=== PATIENT | female | born 1945 | race Caucasian/White ===

== ENCOUNTER 2023-03-26 14:14 | Emergency (ER) | payer MEDICARE ==
[~2023-03-26] VITALS: Ht 167.6 cm; Wt 54.4 kg
[2023-03-26 14:19] VITALS: BP 130/68; TEMP 98.2
[2023-03-26] MEDS ORDERED: LEVO750T46 PO (15:15)
[2023-03-26] MEDS ORDERED: TDAP [DIPH/PERTUSSIS/TET] 0.5 ML VIAL IM ONE ×2 (15:25→15:30)
--- NOTE | 2023-03-26 15:42 | NUR ---
Patient discharged to home in stable condition. Written and verbal after care instructions given. Patient verbalizes understanding of instruction.
[2023-03-26 15:43] VITALS: O2SAT 98
== END 2023-03-26 15:43 | disposition home or self-care (01) ==
LOC: ER 14:20
DX: S91.331A Puncture wound without foreign body, right foot, initial encounter (principal); W45.0XXA Nail entering through skin, initial encounter; Y93.89 Activity, other specified; Y92.89 Other specified places as the place of occurrence of the external cause; Y99.8 Other external cause status
CPT/HCPCS: 90715

== ENCOUNTER 2024-08-07 22:32 | Inpatient (IN) | payer MEDICARE, OTHER ==
[~2024-08-07] VITALS: Ht 167.6 cm; Wt 57.2 kg
[~2024-08-07 22:32] MED LIST: LEVO750T46 PO
[2024-08-08] MEDS ORDERED: ONDANSETRON HCL/PF 4 MG/2 ML VIAL ONE (00:18)
[2024-08-08] MEDS ORDERED: MORPHINE SULFATE INJ 2 MG/ML DISP.SYRIN ONE ×2 (00:18→06:29)
[2024-08-08] MEDS: MORPHINE SULFATE INJ 2 MG/ML DISP.SYRIN IV ONE (00:23)
[2024-08-08] MEDS: IV NS 0.9% 500 ML BAG IV ONE (00:23)
[2024-08-08] MEDS: ONDANSETRON HCL/PF 4 MG/2 ML VIAL IVP ONE (00:23)
[2024-08-08 00:34] LABS: BASOPHILS % (AUTO) 0.5 % (0.0-2.0); EOSINOPHILS % (AUTO) 0.5 % (0.0-6.0); HEMATOCRIT 36 % (33-45); HEMOGLOBIN 12.4 g/dL (11.5-14.8); LYMPHOCYTES % (AUTO) 10.8 % (20.0-44.0); MEAN CORPUSCULAR HEMOGLOBIN 32 PG (26.0-33.0); MEAN CORPUSCULAR HGB CONC 35 g/dl (31.0-36.0); MEAN CORPUSCULAR VOLUME 93 fL (82-100); MONOCYTES # (AUTO) 0.4 K/uL (0.1-1.30); MONOCYTES % (AUTO) 3.9 % (2.0-12.0); NEUTROPHILS % (AUTO) 84.3 % (43.0-81.0); PLATELET COUNT (AUTO) 189 K/uL (150-450); RED BLOOD CELL COUNT(AUTO) 3.86 MIL/uL (4.0-5.2); RED CELL DISTRIBUTION WIDTH 13.3 % (11.5-15.0); WHITE BLOOD COUNT (AUTO) 9.4 K/uL (4.3-11.0)
[2024-08-08 00:45] LABS: CALCIUM, SERUM 9.1 mg/dL (8.5-10.1); CARBON DIOXIDE 28 mmol/L (21-32); CHLORIDE 102 mmol/L (98-107); CREATININE 0.8 mg/dL (0.6-1.3); GLUCOSE 157 mg/dL (74-106); POTASSIUM 4.1 mmol/L (3.5-5.1); SODIUM SERUM 140 mmol/L (136-145); UREA NITROGEN, BLOOD 16 mg/dL (7-18)
[2024-08-08 00:51] LABS: ALANINE AMINOTRANSFERASE 30 U/L (12-78); ALBUMIN 4.2 g/dL (3.4-5.0); ALKALINE PHOSPHATASE 64 U/L (46-116); ASPARTATE AMINOTRANSFERASE 21 U/L (15-37); BILIRUBIN,DIRECT 0.1 mg/dL (0.0-0.2); LIPASE 30 U/L (16-77); TOTAL PROTEIN, SERUM 7.4 g/dL (6.4-8.2)
[2024-08-08 01:00] LABS: APPEARANCE,URINE CLEAR (CLEAR); BILIRUBIN,URINE NEGATIVE (NEGATIVE); BLOOD, URINE NEGATIVE Ery/uL (NEGATIVE); COLOR,URINE YELLOW (YELLOW); KETONES,URINE 1+ mg/dL (NEGATIVE); LEUKOCYTE ESTERASE ,URINE NEGATIVE (NEGATIVE); NITRITE, URINE NEGATIVE (NEGATIVE); PROTEIN,URINE NEGATIVE (NEGATIVE); UGLUCOSE NEGATIVE (NEGATIVE); UROBILINOGEN,URINE 0.2 EU/dL (0.2)
[2024-08-08 01:39] LABS: ADD URINE CULTURE NO; BACTERIA,URINE Rare /HPF (None Seen); RBC,URINE 0-2 /HPF (0-2); SQUAMOUS EPITHELIAL CELL,UR Rare /HPF (None Seen); WBC,URINE 0-2 /HPF (0-3)
[2024-08-08] MEDS ORDERED: ACETAMINOPHEN 325 MG TABLET PO PRN (05:30)
[2024-08-08] MEDS ORDERED: MAG HYDROX/AL HYDROX/SIMETH 30 ML UDC PO PRN (05:30)
[2024-08-08] MEDS ORDERED: MAGNESIUM HYDROXIDE 30 ML UDC PO PRN (05:30)
[2024-08-08] MEDS ORDERED: Z GUARD REMEDY 4 OZ OINT TP PRN (05:30)
[2024-08-08] MEDS: MORPHINE SULFATE INJ 2 MG/ML DISP.SYRIN IV PRN (06:33)
[2024-08-08 06:34] LABS: BASOPHILS % (AUTO) 0.3 % (0.0-2.0); HEMATOCRIT 35 % (33-45); LYMPHOCYTES # (AUTO) 0.6 K/uL (0.8-4.8); LYMPHOCYTES % (AUTO) 5.4 % (20.0-44.0); MEAN CORPUSCULAR HEMOGLOBIN 32 PG (26.0-33.0); MEAN CORPUSCULAR HGB CONC 34 g/dl (31.0-36.0); MEAN CORPUSCULAR VOLUME 92 fL (82-100); MONOCYTES # (AUTO) 0.4 K/uL (0.1-1.30); MONOCYTES % (AUTO) 3.3 % (2.0-12.0); NEUTROPHILS # (AUTO) 9.9 K/uL (1.8-8.9); PLATELET COUNT (AUTO) 176 K/uL (150-450); RED BLOOD CELL COUNT(AUTO) 3.78 MIL/uL (4.0-5.2); RED CELL DISTRIBUTION WIDTH 13.4 % (11.5-15.0); WHITE BLOOD COUNT (AUTO) 10.9 K/uL (4.3-11.0)
[2024-08-08 06:58] LABS: CALCIUM, SERUM 8.8 mg/dL (8.5-10.1); CARBON DIOXIDE 26 mmol/L (21-32); CHLORIDE 98 mmol/L (98-107); CREATININE 0.7 mg/dL (0.6-1.3); GLUCOSE 161 mg/dL (74-106); MAGNESIUM 1.9 mg/dL (1.8-2.4); PHOSPHORUS 2.5 mg/dL (2.5-4.9); SODIUM SERUM 136 mmol/L (136-145); UREA NITROGEN, BLOOD 12 mg/dL (7-18)
[2024-08-08] MEDS: TRAMADOL HCL 50 MG TABLET PO PRN (11:59)
[2024-08-08] MEDS ORDERED: BUPROPION HCL PO (13:18)
[2024-08-08] MEDS ORDERED: SIMV10TA98 PO (13:18)
[2024-08-08] MEDS ORDERED: ASPI-1420 PO (13:18)
[2024-08-08 16:00] VITALS: BP 118/55; TEMP 97.9; O2SAT 100
[2024-08-08] MEDS: IV NS 0.9% 1,000 ML IV SCH (18:23)
[2024-08-08 20:00] VITALS: BP 115/53; TEMP 98.8; O2SAT 95
[2024-08-09] VITALS: BP 113/53; TEMP 98.1; O2SAT 95
[2024-08-09 04:00] VITALS: BP 114/67; TEMP 98.6; O2SAT 95
[2024-08-09 07:17] LABS: BASOPHILS % (AUTO) 0.1 % (0.0-2.0); HEMATOCRIT 35 % (33-45); LYMPHOCYTES # (AUTO) 0.8 K/uL (0.8-4.8); LYMPHOCYTES % (AUTO) 4.5 % (20.0-44.0); MEAN CORPUSCULAR HEMOGLOBIN 32 PG (26.0-33.0); MEAN CORPUSCULAR HGB CONC 34 g/dl (31.0-36.0); MEAN CORPUSCULAR VOLUME 93 fL (82-100); MONOCYTES # (AUTO) 1.2 K/uL (0.1-1.30); MONOCYTES % (AUTO) 6.8 % (2.0-12.0); NEUTROPHILS # (AUTO) 15.7 K/uL (1.8-8.9); NEUTROPHILS % (AUTO) 88.6 % (43.0-81.0); PLATELET COUNT (AUTO) 164 K/uL (150-450); RED BLOOD CELL COUNT(AUTO) 3.81 MIL/uL (4.0-5.2); RED CELL DISTRIBUTION WIDTH 13.4 % (11.5-15.0); WHITE BLOOD COUNT (AUTO) 17.7 K/uL (4.3-11.0)
[2024-08-09 07:21] LABS: CALCIUM, SERUM 8.5 mg/dL (8.5-10.1); CARBON DIOXIDE 28 mmol/L (21-32); CHLORIDE 98 mmol/L (98-107); CREATININE 0.8 mg/dL (0.6-1.3); GLUCOSE 131 mg/dL (74-106); MAGNESIUM 2.1 mg/dL (1.8-2.4); PHOSPHORUS 3.3 mg/dL (2.5-4.9); POTASSIUM 3.8 mmol/L (3.5-5.1); SODIUM SERUM 129 mmol/L (136-145); UREA NITROGEN, BLOOD 20 mg/dL (7-18)
[2024-08-09] MEDS: PANTOPRAZOLE 40 MG TABLET.DR PO SCH (07:30)
[2024-08-09] MEDS: IV NS 0.9% 1,000 ML IV PRN (09:08)
[2024-08-09] MEDS: ONDANSETRON HCL/PF 4 MG/2 ML VIAL IVP PRN (11:53)
[2024-08-09] MEDS: PIPERACILLIN /TAZOBACTAM 3.375 G in IV D5W 50 ML IV SCH (18:05)
[2024-08-09 20:28] VITALS: BP 129/61; TEMP 98.2; O2SAT 97
[2024-08-10 00:59] VITALS: BP 116/60; TEMP 97.9; O2SAT 95
[2024-08-10 04:50] VITALS: BP 116/55; TEMP 98.6; O2SAT 96
[2024-08-10 08:00] VITALS: BP 116/55; TEMP 98.6; O2SAT 96
[2024-08-10] MEDS ORDERED: FENTANYL PF 250MCG/5ML AMPUL ONE (08:04)
[2024-08-10] MEDS ORDERED: ROCURONIUM BROMIDE 50 MG/5 ML ONE (08:05)
[2024-08-10] MEDS ORDERED: BACITRACIN ZINC OINT (15 GM) 15 GM TUBE TP ONE (08:10)
[2024-08-10] MEDS ORDERED: LIDOCAINE 1%-EPI 1:100,000 20 ML VIAL ONE (08:10)
[2024-08-10] MEDS ORDERED: BUPIVACAINE 0.5 % PF 150 MG/30 ML VIAL ONE (08:10)
[2024-08-10] MEDS ORDERED: ANESTHESIA TRAY IN PYXIS 1 EA TRAY MC ONE (08:10)
[2024-08-10 08:27] LABS: BASOPHILS % (AUTO) 0.1 % (0.0-2.0); EOSINOPHILS % (AUTO) 0.1 % (0.0-6.0); HEMATOCRIT 34 % (33-45); HEMOGLOBIN 11.6 g/dL (11.5-14.8); LYMPHOCYTES # (AUTO) 0.5 K/uL (0.8-4.8); LYMPHOCYTES % (AUTO) 4.3 % (20.0-44.0); MEAN CORPUSCULAR HEMOGLOBIN 32 PG (26.0-33.0); MEAN CORPUSCULAR HGB CONC 34 g/dl (31.0-36.0); MEAN CORPUSCULAR VOLUME 93 fL (82-100); MONOCYTES % (AUTO) 8.3 % (2.0-12.0); NEUTROPHILS # (AUTO) 10.7 K/uL (1.8-8.9); NEUTROPHILS % (AUTO) 87.2 % (43.0-81.0); PLATELET COUNT (AUTO) 158 K/uL (150-450); RED BLOOD CELL COUNT(AUTO) 3.67 MIL/uL (4.0-5.2); RED CELL DISTRIBUTION WIDTH 13.4 % (11.5-15.0); WHITE BLOOD COUNT (AUTO) 12.2 K/uL (4.3-11.0)
[2024-08-10 10:56] LABS: ALBUMIN 2.8 g/dL (3.4-5.0); BILIRUBIN,TOTAL 1.2 mg/dL (0.2-1.0); CALCIUM, SERUM 9.1 mg/dL (8.5-10.1); MAGNESIUM 2.4 mg/dL (1.8-2.4); PHOSPHORUS 2.5 mg/dL (2.5-4.9); POTASSIUM 3.7 mmol/L (3.5-5.1); TOTAL PROTEIN, SERUM 6.2 g/dL (6.4-8.2)
[2024-08-10] MEDS ORDERED: IV LR 1000 ML 1,000 ML BAG IV PRN (14:00)
[2024-08-10] MEDS: IV LR 1000 ML 1,000 ML IV PRN (14:19)
[2024-08-10] MEDS: GABAPENTIN 100 MG CAPSULE PO SCH (15:53)
[2024-08-10] MEDS: CELECOXIB 100 MG CAPSULE PO SCH (15:54)
[2024-08-10] MEDS: ACETAMINOPHEN 325 MG TABLET PO SCH (15:55)
[2024-08-10 20:00] VITALS: BP 110/57; TEMP 98.2; O2SAT 95
[2024-08-11] VITALS: BP 118/54; TEMP 97.9; O2SAT 100
[2024-08-11 05:00] VITALS: BP 124/66; TEMP 97.9; O2SAT 97
[2024-08-11 08:00] VITALS: BP 123/62; TEMP 97.9; O2SAT 97
[2024-08-11 08:43] LABS: BASOPHILS % (AUTO) 0.1 % (0.0-2.0); HEMATOCRIT 32 % (33-45); HEMOGLOBIN 10.9 g/dL (11.5-14.8); LYMPHOCYTES # (AUTO) 0.8 K/uL (0.8-4.8); LYMPHOCYTES % (AUTO) 6.8 % (20.0-44.0); MEAN CORPUSCULAR HEMOGLOBIN 32 PG (26.0-33.0); MEAN CORPUSCULAR HGB CONC 34 g/dl (31.0-36.0); MEAN CORPUSCULAR VOLUME 94 fL (82-100); MONOCYTES # (AUTO) 0.9 K/uL (0.1-1.30); MONOCYTES % (AUTO) 7.2 % (2.0-12.0); NEUTROPHILS # (AUTO) 10.2 K/uL (1.8-8.9); NEUTROPHILS % (AUTO) 85.9 % (43.0-81.0); PLATELET COUNT (AUTO) 158 K/uL (150-450); RED BLOOD CELL COUNT(AUTO) 3.42 MIL/uL (4.0-5.2); RED CELL DISTRIBUTION WIDTH 13.3 % (11.5-15.0); WHITE BLOOD COUNT (AUTO) 11.9 K/uL (4.3-11.0)
[2024-08-11 09:00] LABS: ALBUMIN 2.5 g/dL (3.4-5.0); BILIRUBIN,TOTAL 0.5 mg/dL (0.2-1.0); CALCIUM, SERUM 8.4 mg/dL (8.5-10.1); CREATININE 0.9 mg/dL (0.6-1.3); MAGNESIUM 2.5 mg/dL (1.8-2.4); PHOSPHORUS 1.9 mg/dL (2.5-4.9); POTASSIUM 3.7 mmol/L (3.5-5.1); TOTAL PROTEIN, SERUM 6.1 g/dL (6.4-8.2)
[2024-08-11] MEDS: K PHOS NEUTRAL 250 MG TABLET PO ONE (14:15)
[2024-08-11 16:00] VITALS: BP 139/60; TEMP 98.2; O2SAT 95
[2024-08-11 20:00] VITALS: BP 141/56; TEMP 98.2; O2SAT 96
[2024-08-12 13:00] VITALS: TEMP 98.2
[2024-08-12] MEDS ORDERED: CELE100C PO (13:23)
[2024-08-12] MEDS ORDERED: GABA100C PO (13:23)
== END 2024-08-12 15:05 | disposition home health service (06) | DRG 418 ==
LOC: ER 22:36 → TRANSITION 08-08 06:01 → TELE 08-08 09:20
PROVIDERS: ADMIT Nurse Practitioner Acute Care; ATTEND Nurse Practitioner Acute Care
PROC: 0FT44ZZ Resection of Gallbladder, Percutaneous Endoscopic Approach (ICD-10-PCS; principal; 2024-08-10)
PROC: 0DNU4ZZ Release Omentum, Percutaneous Endoscopic Approach (ICD-10-PCS; 2024-08-10)
DX: K80.01 Calculus of gallbladder with acute cholecystitis with obstruction (principal); K82.1 Hydrops of gallbladder; R94.31 Abnormal electrocardiogram [ECG] [EKG]; K66.0 Peritoneal adhesions (postprocedural) (postinfection); E87.1 Hypo-osmolality and hyponatremia; E86.1 Hypovolemia; E78.5 Hyperlipidemia, unspecified; D72.829 Elevated white blood cell count, unspecified; R74.01 Elevation of levels of liver transaminase levels; Z98.890 Other specified postprocedural states; K59.00 Constipation, unspecified
CPT/HCPCS: 36415; 71045-TC; 76705-TC; 78226; 80048-TC; 80053-TC; 80076-TC; 81001; 83690-TC; 83735-TC; 84100-TC; 84484-TC; 85025-TC; 85730-TC; 86850-TC; 88304-TC; A4223; A9537; G0378; J1100; J2270; J2405; J2543; J2704; J2765; J3010; J3490; J7030; J7060; J7120